=== PATIENT | male | born 1930 | race Two or more races ===

== ENCOUNTER 2018-03-16 11:56 | Outpatient (CLI) | payer OTHER | END 2018-03-16 16:45 | disposition home or self-care (01) | LOC: RAD 11:56 | DX: M20.12 Hallux valgus (acquired), left foot (principal) ==

== ENCOUNTER 2018-03-23 12:29 | Outpatient (CLI) | payer OTHER ==
[~2018-03-23] VITALS: Ht 188 cm; Wt 90.7 kg
== END 2018-03-23 12:45 | disposition home or self-care (01) ==
LOC: OFIC 805 12:29
DX: J32.8 Other chronic sinusitis (principal); R04.0 Epistaxis; R09.81 Nasal congestion

== ENCOUNTER 2018-03-26 08:54 | Outpatient (CLI) | payer OTHER | END 2018-03-26 09:20 | disposition home or self-care (01) | LOC: TOM 08:54 | DX: J32.4 Chronic pansinusitis (principal) ==

== ENCOUNTER 2018-03-27 08:28 | Outpatient (CLI) | payer OTHER ==
[~2018-03-27] VITALS: Ht 182.9 cm; Wt 90.7 kg
== END 2018-03-27 08:45 | disposition home or self-care (01) ==
LOC: OFIC 805 08:28
DX: J32.8 Other chronic sinusitis (principal); R09.81 Nasal congestion; R04.2 Hemoptysis; R04.0 Epistaxis

== ENCOUNTER 2018-05-16 08:20 | Outpatient (CLI) | payer OTHER | END 2018-05-16 08:32 | disposition home or self-care (01) | LOC: RX STUDY 08:20 | DX: K21.9 Gastro-esophageal reflux disease without esophagitis (principal) ==

== ENCOUNTER 2018-09-07 09:08 | Outpatient (CLI) | payer OTHER | END 2018-09-07 09:19 | disposition home or self-care (01) | LOC: TOM 09:08 | DX: K76.0 Fatty (change of) liver, not elsewhere classified (principal); I72.2 Aneurysm of renal artery | CPT/HCPCS: 74178; Q9965 ==

== ENCOUNTER 2019-05-09 11:41 | Outpatient (CLI) | payer OTHER ==
[~2019-05-09] VITALS: Ht 182.9 cm; Wt 100.7 kg
== END 2019-05-09 12:00 | disposition home or self-care (01) ==
LOC: OFIC 805 11:41
DX: J32.8 Other chronic sinusitis (principal); R49.0 Dysphonia; R68.89 Other general symptoms and signs; J34.89 Other specified disorders of nose and nasal sinuses

== ENCOUNTER 2019-07-24 08:27 | Outpatient (CLI) | payer OTHER | END 2019-07-24 08:31 | disposition home or self-care (01) | LOC: TOM 08:27 | DX: M54.2 Cervicalgia (principal) | CPT/HCPCS: 72127; Q9965 ==

== ENCOUNTER 2019-12-24 10:12 | Outpatient (CLI) | payer OTHER ==
[~2019-12-24] VITALS: Ht 182.9 cm; Wt 99.8 kg
[~2019-12-24 10:12] MED LIST: TRAMADOL HCL50 MG PO
== END 2019-12-24 11:53 | disposition home or self-care (01) ==
LOC: OFIC 805 10:12
DX: R09.81 Nasal congestion (principal); R49.0 Dysphonia; R09.89 Other specified symptoms and signs involving the circulatory and respiratory systems; J34.89 Other specified disorders of nose and nasal sinuses
CPT/HCPCS: 31575; 99213; G0463